=== PATIENT | female | born 2005 | race Caucasian/White ===

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

== ENCOUNTER → 2023-12-06 | Outpatient (CLI) | payer OTHER, SELFPAY ==
[2023-12-06 17:01] LABS: Absolute Lymphocyte Count 1.61 X10^3/uL (0.83-4.51); Basophil# 0.03 X10^3/uL; Basophil% 0.5 % (0-1); Eosinophils% 1.6 % (0-5); Hematocrit 40.3 % (37-47); Hemoglobin 13.5 g/dL (12.0-15.0); Lymphocyte # 1.61 X10^3/ul (0.83-4.51); Lymphocyte % 26.1 % (19-41); Mean Corp Hgb Conc 33.5 g/dL (32-36); Mean Corpuscular Hgb 28.7 pg (27.0-32.0); Mean Corpuscular Volume 85.7 fL (81-99); Mean Platelet Vol. 9.6 fl (6.2-12.0); Monocyte# 0.42 X10^3/uL; Monocyte% 6.8 % (0-10); NRBC Flagged by Analyzer 0 % (0-5); Neutrophil # 3.99 X10^3/uL (2.7-7.7); Neutrophil % 64.7 % (47-70); Platelet Count 258 K/mm3 (150-450); RBC Distribution Width CV 13.6 % (11.6-14.6); RBC Distribution Width SD 42.7 fl (35.1-43.9); White Blood Count 6.2 K/mm3 (4.4-11.0)
[2023-12-06 17:10] LABS: Anion Gap 9 (5-15); BUN 13 mg/dL (7-18); BUN/Creat Ratio 13.5 RATIO (10-20); Calcium,Total 9.2 mg/dL (8.5-10.1); Chloride 109 mmol/L (98-107); Creatinine, Serum 0.96 mg/dL (0.55-1.02); EST Glomerular Filtration Rate 78 mL/min (>60); Est Glom Filt Rate - Afr Amer 94 mL/min (>60); Glucose 104 mg/dL (74-106); Potassium 3.6 mmol/L (3.5-5.1); Sodium Level 142 mmol/L (136-145)
--- OUTSIDE RECORDS SUMMARY | 2023-12-06 22:23 | XMS RPT_ITS | CCD ---
Author Name Unknown Address [address] [place] [address] Organization [facility] Care Team Providers Care Deaf/Hard Of Hearing Specialist Name Role Phone RASHIDA COTA (BRAIDING MACHINE TENDER) Unavailable Unavailabl e Problems Problem Classification Problem Date Documented Da te Episodic/Chronic Other lower respiratory disease (1 source) Cough; Translations: [Cough] Onset: 11-14-2017 Episodic Results Test Name Value Interpretation Reference Range Facil ity Encounters Encounter Date Encounter Type Care Provider Facility Start: 11-14-2017 End: 11-14-2017 Ambulatory RASHIDA PRESCOTT) [facility] Summary Purpose Family History No Family History Records Found Advance Directives No Advanced Directives Records Found Additional Source Comments INFORMATION SOURCE (unrecogn ized section and content) FOR RECORDS PERTAINING TO PATIENTS WHO ARE OR HAVE BEEN ENROLLED IN A CHEMICAL DEPENDENCY/SUBSTANCEABUSE PROGRAM, SOME INFORMATION MAY BE OMITTED. This clinical summary was aggregated from multiple sources. Caution should be exercised in using it in the provision of clinical care. This summary normalizes information from multiple sources, and as a consequence, information in this document may materially change the coding, format and clinical context of patient data. In addition, data may be omitted in some cases. CLINICAL DECISIONS SHOULD BE BASED ON THE PRIMARY CLINICAL RECORDS. [email or web address] provides no warranty or guarantee of the accuracy or completeness of information in this document.
[2023-12-11 23:03] LABS: HPV Reflexed? YES, CHARGE PATIENT; HPV Rflx Negative
[2023-12-11 23:04] LABS: Chlamydia By Nucleic Acid AMP Negative; Gonococcus By Nucleic Acid AMP Negative
== END | disposition home or self-care (01) ==
PROVIDERS: PCP Family Medicine; Visit Provider Family Medicine
DX: Z01.411 Encounter for gynecological examination (general) (routine) with abnormal findings (principal); Z01.419 Encounter for gynecological examination (general) (routine) without abnormal findings; R55 Syncope and collapse
CPT/HCPCS: 36415; 80048; 85025; 87491; 87591; 87624; 88142

== ENCOUNTER → 2024-12-19 | Outpatient (CLI) | payer OTHER, SELFPAY ==
[2024-12-19 15:24] LABS: Absolute Lymphocyte Count 2.09 X10^3/uL (0.83-4.51); Absolute Neutrophil Count 2.6 X10^3/uL (2.0-7.7); Basophil# 0.04 X10^3/uL; Basophil% 0.8 % (0-1); Eosinophil# 0.18 X10^3/uL; Eosinophils% 3.5 % (0-5); Hematocrit 38.9 % (37-47); Hemoglobin 13.6 g/dL (12.0-15.0); Lymphocyte # 2.09 X10^3/ul (0.83-4.51); Lymphocyte % 40.1 % (19-41); Mean Corpuscular Hgb 29.1 pg (27.0-32.0); Mean Corpuscular Volume 83.3 fL (81-99); Mean Platelet Vol. 9.1 fl (6.2-12.0); Monocyte# 0.31 X10^3/uL; NRBC Flagged by Analyzer 0 % (0-5); Neutrophil # 2.57 X10^3/uL (2.7-7.7); Neutrophil % 49.2 % (47-70); Platelet Count 240 K/mm3 (150-450); RBC Distribution Width CV 12.1 % (11.6-14.6); RBC Distribution Width SD 36.9 fl (35.1-43.9); Red Blood Count 4.67 M/mm3 (4.2-5.4); White Blood Count 5.2 K/mm3 (4.4-11.0)
[2024-12-19 17:06] LABS: ALB/GLOB Ratio 1.8 RATIO (0.9-2.4); AST(SGOT) 15 U/L (<=31); Alanine Aminotransfer ALT/SGPT 18 U/L (<=34); Alkaline Phosphatase 36 U/L (35-104); Anion Gap 14 (5-15); BUN 8 mg/dL (4-19); BUN/Creat Ratio 10.6 RATIO (10-20); Calcium,Total 9.1 mg/dL (7.6-11.0); Chloride 105 mmol/L (98-108); Creatinine, Serum 0.76 mg/dL (0.70-1.20); EST Glomerular Filtration Rate 115 (>60); Globulin 2.2 g/dL (2.2-4.2); Glucose 80 mg/dL (70-99); Potassium 3.6 mmol/L (3.3-5.1); Protein, Total 6.2 g/dL (5.9-8.4); Sodium Level 139 mmol/L (133-145); Thyroid Stim Hormone (TSH) 0.747 uIU/mL (0.300-4.200); Total Bilirubin 0.76 mg/dL (0.00-1.30)
== END | disposition home or self-care (01) ==
LOC: BIMLAB 14:20
PROVIDERS: PCP Family Medicine; Referring Provider Family Medicine; Visit Provider Family Medicine
DX: R63.4 Abnormal weight loss (principal)
CPT/HCPCS: 36415; 80053; 84439; 84443; 85025

== ENCOUNTER → 2025-04-14 | Outpatient (CLI) | payer OTHER, SELFPAY ==
--- NOTE | 2025-04-14 09:19 | RAD_ITS ---
PROCEDURE: CERV SPINE 4 OR 5 VIEWS 04/14/2025 REASON FOR EXAM: BACK PAIN TECHNIQUE: CERV SPINE 4 OR 5 VIEWS COMPARISON: None RAD/Cerv Spine 4 or 5 Views IMPRESSION: No acute cervical fracture or subluxations. No significant degenerative change s. No acute soft tissue abnormalities. No radiographic foreign body. Reading Location: [id number]
--- NOTE | 2025-04-14 09:19 | RAD_ITS ---
EXAM: XR Lumbosacral Spine, 4 or 5 Views CLINICAL INDICATION: BACK PAIN TECHNIQUE: Frontal, lateral and bilateral oblique views of the lumbar spine. COMPARISON: No relevant prior studies available. FINDINGS: VERTEBRAE: Unremarkable. No acute fracture. Normal alignment. SACRUM/COCCYX: Unremarkable as visualized. No acute fracture. DISC SPACES: No acute findings. No significant narrowing. SOFT TISSUES: Unremarkable. RAD/L/S Spine Comp/w Bending Views IMPRESSION: Normal lumbar spine x-rays. Reading Location: [facility]
--- NOTE | 2025-04-14 09:19 | RAD_ITS ---
PROCEDURE: THORACIC SPINE 3 VIEWS 04/14/2025 REASON FOR EXAM: BACK PAIN TECHNIQUE: THORACIC SPINE 3 VIEWS COMPARISON: None RAD/Thoracic Spine 3 Views IMPRESSION: No acute thoracic fracture or subluxations. Alignment is grossly within normal limits. No definite listhesis. Visualized portions of the lungs are clear. Reading Location: [id number]
--- OUTSIDE RECORDS SUMMARY | 2025-04-14 19:00 | XMS RPT_ITS | CCD ---
Author Organization [facility] Care Team Providers Care Talent Consultant Name Role Phone Dr. Esau Ordonez Primary Care Provider [phone] Dr. Esau Ordonez Attending Provider [phone] Dr. Esau Ordonez Referring Provider [phone] Esau Ordonez DO Primary Care Provider ESAU ORDONEZ Primary Care Unavailable Dr. Esau Ordonez DO Primary Care Provider Dr. Esau Ordoenz DO Attending Provider [phone] Dr. Esau Ordonez DO Referring Provider [phone] Esau Ordonez Attending Unavailable Esau Ordonez Referring Unavailable Esau Ordonez Primary Care Unavailable Esau Ordonez Referring Unavailable Esau Ordonez Primary Care Unavailable Esau Ordoenz Attending Unavailable Dr. Esau Ordonez DO Primary Care Provider Dr. Esau Ordonez DO Attending Provider [phone] Dr. Esau Ordonez DO Referring Provider [phone] Jody Farias Attending Provider [phone] Medications Current Medications Medication Drug Class(es) Dates Sig (Normalized) Sig (Original) COMPOUNDED PRESCRIPTION (1 source) take 1 tablet by mouth once daily COMPOUNDED PRESCRIPTION Take 1 tablet by mouth once daily. Biotin 500mg daily 0 Active Drospirenone-Ethiny l Estradiol (6 sources) Progestin, Estrogen Start: 12-18-2024 take 3 tablets by mouth once daily Drospirenone-Ethiny l Estradiol (Jackie (28)) 3-0.03 mg tablet Active 1 {tbl} PO DAILY 21 09December 18, 2024 8:15am Start: 12-18-2024 take 3 tablets by mo uth once daily Drospirenone-Ethinyl Estradiol (Jackie (28)) 3-0.03 mg tablet Active 1 {tbl} PO DAILY December 18, 2024 8:15am Start: 12-10-2024 End: 12-18-2024 take 3 tablets by mouth once daily Drospirenone-Ethinyl Estradiol (Jackie (28)) 3-0.03 mg tablet Discontinued 1 {tbl} PO DAILY 21 09December 10, 2024 4:12pm December 18, 2024 8:15am Start: 12-10-2024 End: 12-18-2024 take 3 tablets by mouth once daily Drospirenone-Ethinyl Estradiol (Jackie (28)) 3-0.03 mg tablet Discontinued 1 {tbl} PO DAILY December 10, 2024 4:12pm December 18, 2024 8:15am Start: 12-13-2023 End: 12-10-2024 take 3 tablets by mouth once daily Drospirenone-Ethinyl Estradiol (Jackie (28)) 3-0.03 mg tablet Discontinued 1 {tbl} PO DAILY 21 09December 13, 2023 12:00am December 10, 2024 4:12pm Start: 12-13-2023 End: 12-10-2024 take 3 tablets by mouth once daily Drospirenone-Ethinyl Estradiol (Jackie (28)) 3-0.03 mg tablet Discontinued 1 {tbl} PO DAILY December 13, 2023 12:00am December 10, 2024 4:12pm ibuprofen 300 mg oral tablet (3 sources) Nonsteroidal Anti-inflammatory Drug Start: 12-06-2023 take 2 tablets by mouth every six hours Ibuprofen 300 mg tablet Active 600 mg PO EVERY 6 HOURS December 06, 2023 12:00am Start: 12-06-2023 take 600 mg by mouth every six hours Ibuprofen Active 600 MG PO EVERY 6 HOURS December 06, 2023 12:00am MULTIVIT WITH CALCIUM,IRON,MIN (WOMEN'S MULTIPLE VITAMINS ORAL) (1 source) take 1 capsule by mouth once daily MULTIVIT WITH CALCIUM,IRON,MIN (WOMEN'S MULTIPLE VITAMINS ORAL) Take 1 capsule by mouth once daily. 0 Active predniSONE 20 mg oral tablet (2 sources) Start: 02-16-2024 End: 02-21-2024 take 2 tablets by mouth once daily predniSONE (DELTASONE) 20 mg tablet Indications: Sore throat , URI, acute Take 2 tablets by mouth once daily for 5 days. 10 tablet 0 02/16/2024 02/16/2024 Discontinued Problems Problem Classification Problem Date Documented Date Episodic/Chronic Administrative/social admission (3 sources) Special examination status; Translations: [Encounter for examination for participation in sport] 05-06-2019 Episodic Other nutritional; endocrine; and metabolic disorders (3 sources) Unexplained weight loss ; Translations: [Abnormal weight loss] 12-10-2024 Episodic Other nutritional; endocrine; and metabolic disorders (1 source) Abnormal weight loss; Translations: [Abnormal weight loss] Onset: 12-24-2024 Episodic Other upper respiratory infections (2 sources) Sore throat symptom; Translations: [Acute pharyngitis, unspecified] 02-16-2024 Episodic Spondylosis; intervertebral disc disorders; other back problems (1 source) Backache; Translations: [Dorsalgia, unspecified] 04-14-2025 Episodic Syncope (4 sources) Syncope and collapse; Translations: [Syncope and collapse] 12-06-2023 Episodic Results Test Name Value Interpretation Reference Range Facility Absolute lymphocyte countOrd ered By: Esau Ordonez on 12-19-2024 Lymphocytes Auto (Unsp spec) [#/Vol] 2.09 10*3/uL 0.83-4.51 [facility] Absolute neutrophil countOrd ered By: Esau Ordonez on 12-19-2024 Neutrophils (Bld) [#/Vol] 2.6 10*3/uL 2.0-7.7 [facility] Anion gap in Serum or Plasma Ordered By: Esau Ordonez on 12-19-2024 Anion gap [Moles/Vol] 14 mmol/L 5-15 [facility] Automated lymphocyte count a s percentage of total leukocytesOrdered By: Esau Ordonez on 12-19-2024 Lymphocytes/100 WBC Auto (Unsp spec) 40.1 % [facility] BUN/creatinine ratioOrdered By: Esau Ordonez on 12-19-2024 Urea nitrogen/Creatinine [Mass ratio] 10.6 mg/mg 10- [facility] Basophil percentageOrdered B y: Esau Ordonez on 12-19-2024 Basophils/100 WBC (Bld) 0.8 % 0-1 [facility] Bilirubin, totalOrdered By: Esau Ordonez on 12-19-2024 Bilirubin [Mass/Vol] 0.76 mg/dL 0.00-1.30 [facility] CBC W/Diff, Automatedon 11-24 Absolute Lymph 2.09 X10 3/uL Normal 0.83-4.51 [facility] Comment on above: Performed By: #### L 100.0100, L506.0400, L500.4050, L501.9520 #### [facility] [address] [place], [address] Absolute Neut 2.6 X10 3/uL Normal 2.0-7.7 [facility] Comment on above: Performed By: #### L 100.0100, L506.0400, L500.4050, [id number] #### [facility] [address] [place], [address] Basophils/100 WBC (Bld) 0.8 % Normal 0-1 [facility] Comment on above: Performed By: #### L 100.0100, L506.0400, L500.4050, [id number] #### [facility] [address] [place], [address] Eosinophils/100 WBC (Bld) 3.5 % Normal 0-5 [facility] Comment on above: Performed By: #### L 100.0100, L506.0400, L500.4050, L501.9520 #### [facility] [address] [place], [address] Erythrocyte distribution width (RBC) [Ratio] 12.1 % Normal 11.6-14.6 [facility] Comment on above: Performed By: #### L 100.0100, L506.0400, L500.4050, L501.9520 #### [facility] [address] [place], [address] Hematocrit (Bld) [Volume fraction] 38.9 % Normal 37-47 [facility] Comment on above: Performed By: #### L 100.0100, L506.0400, L500.4050, [id number] #### [facility] [address] [place], [address] Hemoglobin (Bld) [Mass/Vol] 13.6 g/dL Normal 12.0-15.0 [facility] Comment on above: Performed By: #### L 100.0100, L506.0400, L500.4050, L501.9520 #### [facility] [address], [address] IG% 0.400 Normal 0.0-0.9 [facility] Comment on above: Result Comment: IG% - Immature Granulocytes (promyelocytes, myelocytes and metamyelocytes) > 1% indicates that a LEFT SHIFT is Present. Performed By: #### L 100.0100, L506.0400, L500.4050, L501.9520 #### [facility] [address] [place], [address] Lymphocytes/100 WBC (Bld) 40.1 % Normal 19-41 [facility] Comment on above: Performed By: #### L 100.0100, L506.0400, L500.4050, L501.9520 #### [facility] [address] [place], [address] MCH (RBC) [Entitic mass] 29.1 pg Normal 27.0-32.0 [facility] Comment on above: Performed By: #### L 100.0100, L506.0400, L500.4050, L501.9520 #### [facility] [address] [place], [address] MCHC (RBC) [Mass/Vol] 35.0 g/dL Normal 32-36 [facility] Comment on above: Performed By: #### L 100.0100, L506.0400, L500.4050, L501.9520 #### [facility] [address] [place], [address] MCV (RBC) [Entitic vol] 83.3 fL Normal 81-99 [facility] Comment on above: Performed By: #### L 100.0100, L506.0400, L500.4050, L501.9520 #### [facility] [address] [place], [address] Monocytes/100 WBC (Bld) 6.0 % Normal 0-[address] [facility] Comment on above: Performed By: #### L 100.0100, L506.0400, L500.4050, L501.9520 #### [facility] [address] [place], [address] Neutrophils/100 WBC (Bld) 49.2 % Normal 47-70 [facility] Comment on above: Performed By: #### L 100.0100, L506.0400, L500.4050, L501.9520 #### [facility] [address] [place], [address] Nucleated RBC (Bld) [#/Vol] 0 10*3/uL Normal 0-5 [facility] Comment on above: Performed By: #### L 100.0100, L506.0400, L500.4050, L501.9520 #### [facility] [address] [place], [address] Platelet mean volume (Bld) [Entitic vol] 9.1 fL Normal 6.2-12.0 [facility] Comment on above: Performed By: #### L 100.0100, L506.0400, L500.4050, L501.9520 #### [facility] [address] [place], [address] Platelets (Bld) [#/Vol] 240 10*3/uL Normal 150-450 [facility] Comment on above: Performed By: #### L 100.0100, L506.0400, L500.4050, L501.9520 #### [facility] [address] [place], [address] RBC (Bld) [#/Vol] 4.67 10*6/uL Normal 4.2-5.4 [facility] Comment on above: Performed By: #### L 100.0100, L506.0400, L500.4050, L501.9520 #### [facility] [address] [place], [address] RDW SD 36.9 fl Normal 35.1-43.9 [facility] Comment on above: Performed By: #### L 100.0100, L506.0400, L500.4050, L501.9520 #### [facility] [address] [place], [address] WBC (Bld) [#/Vol] 5.2 10*3/uL Normal 4.4-11.0 [facility] Comment on above: Performed By: #### L 100.0100, L506.0400, L500.4050, L501.9520 #### [facility] [address] [place], [address] Carbon dioxide, total [Moles /volume] in Central venous bloodOrdered By: Esau Ordonez on 12-19-2024 CO2 [Moles/Vol] 20.0 mmol/L Low 21.0-32.0 [facility] Chloride assayOrdered By: Do viktoria Ordonez on 12-19-2024 Chloride [Moles/Vol] 105 mmol/L 98-108 [facility] Comprehensive Metabolic Prof ilon 12-19-2024 Albumin [Mass/Vol] 4.0 g/dL Normal 3.5-5.0 [facility] Comment on above: Performed By: #### L 100.0100, L506.0400, L500.4050, L501.9520 #### [facility] [address] [place], [address] Albumin/Globulin [Mass ratio] 1.8 {ratio} Normal 0.9-2.4 [facility] Comment on above: Performed By: #### L 100.0100, L506.0400, L500.4050, L501.9520 #### [facility] [address] [place], [address] ALK PHOS 36 U/L Normal 35-104 [facility] Comment on above: Performed By: #### L 100.0100, L506.0400, L500.4050, L501.9520 #### [facility] [address] [place], [address] ALT [Catalytic activity/Vol] 18 U/L Normal <=34 [facility] Comment on above: Performed By: #### L 100.0100, L506.0400, L500.4050, L501.9520 #### [facility] [address] [place], [address] AST [Catalytic activity/Vol] 15 U/L Normal <=31 [facility] Comment on above: Performed By: #### L 100.0100, L506.0400, L500.4050, L501.9520 #### [facility] [address] [place], [address] Bilirubin [Mass/Vol] 0.76 mg/dL Normal 0.00-1.30 [facility] Comment on above: Performed By: #### L 100.0100, L506.0400, L500.4050, L501.9520 #### [facility] [address] [place], [address] BUN/CRE 10.6 RATIO Normal 10-20 [facility] Comment on above: Performed By: #### L 100.0100, L506.0400, L500.4050, L501.9520 #### [facility] [address] [place], [address] Calcium [Mass/Vol] 9.1 mg/dL Normal 7.6-11.0 [facility] Comment on above: Performed By: #### L 100.0100, L506.0400, L500.4050, L501.9520 #### [facility] [address] [place], [address] Chloride [Moles/Vol] 105 mmol/L Normal 98-108 [facility] Comment on above: Performed By: #### L 100.0100, L506.0400, L500.4050, L501.9520 #### [facility] [address] [place], [address] CO2 [Moles/Vol] 20.0 mmol/L Low 21.0-32.0 [facility] Comment on above: Performed By: #### L 100.0100, L506.0400, L500.4050, L501.9520 #### [facility] [address] [place], [address] Creatinine [Mass/Vol] 0.76 mg/dL Normal 0.70-1.20 [facility] Comment on above: Performed By: #### L 100.0100, L506.0400, L500.4050, L501.9520 #### [facility] [address] [place], [address] GAP 14 Normal 5-15 [facility] Comment on above: Performed By: #### L 100.0100, L506.0400, L500.4050, L501.9520 #### [facility] [address] [place], [address] GFR/1.73 sq M.predicted among non-blacks MDRD (S/P/Bld) [Vol rate/Area] 115 mL/min/{1.73_m2} Normal >60 [facility] Comment on above: Result Comment: mL/m in/1.73m2 CKD-EPI Creatinine Equation (2020) Performed By: #### L 100.0100, L506.0400, L500.4050, L501.9520 #### [facility] [address] [place], [address] Globulin (S) [Mass/Vol] 2.2 g/dL Normal 2.2-4.[address] [facility] Comment on above: Performed By: #### L 100.0100, L506.0400, L500.4050, L501.9520 #### [facility] [address] [place], [address] Glucose [Mass/Vol] 80 mg/dL Normal 70-99 [facility] Comment on above: Performed By: #### L 100.0100, L506.0400, L500.4050, L501.9520 #### [facility] [address] [place], [address] Potassium [Moles/Vol] 3.6 mmol/L Normal 3.3-5.1 [facility] Comment on above: Performed By: #### L 100.0100, L506.0400, L500.4050, L501.9520 #### [facility] [address] [place], [address] Sodium [Moles/Vol] 139 mmol/L Normal 133-145 [facility] Comment on above: Performed By: #### L 100.0100, L506.0400, L500.4050, L501.9520 #### [facility] [address] [place], [address] T PROT 6.2 g/dL Normal 5.9-8.4 [facility] Comment on above: Performed By: #### L 100.0100, L506.0400, L500.4050, L501.9520 #### [facility] [address] [place], [address] Urea nitrogen [Mass/Vol] 8 mg/dL Normal 4-19 [facility] Comment on above: Performed By: #### L 100.0100, L506.0400, L500.4050, L501.9520 #### [facility] [address] [place], [address] Eosinophil percentageOrdered By: Esau Ordonez on 12-19-2024 Eosinophils/100 WBC (Bld) 3.5 % 0-5 [facility] Erythrocyte distribution wid th ratioOrdered By: Esau Ordonez on 12-19-2024 Erythrocyte distribution width (RBC) [Ratio] 12.1 % 11.6-14.6 [facility] Erythrocyte distribution wid th standard deviationOrdered By: Esau Ordonez on 12-19-2024 Erythrocyte distribution width (RBC) [Entitic vol] 36.9 fL 35.1-43.9 [facility] Erythrocyte distribution width (RBC) [Ratio] 36.9 fl 35.1-43.9 [facility] GFR/1.73 sq M.predicted luis g non-blacks MDRD (S/P/Bld) [Vol rate/Area]Ordered By: Esau Ordonez on 12-19-2024 Estimated GFR (MDRD) Non-Af Amer 115 >60 [facility] Comment on above: mL/min/1.73m2 CKD-EP I Creatinine Equation (2020) Glomerular filtration rate ( GFR) estimation/1.73 sq m using serum, plasma, or whole bOrdered By: Esau Ordonez on 12-19-2024 GFR/1.73 sq M.predicted among non-blacks MDRD (S/P/Bld) [Vol rate/Area] 115 mL/min/{1.73_m2} >60 [facility] Comment on above: mL/min/1.73m2 CKD-EP I Creatinine Equation (2020) Hematocrit Auto (Bld) [Volum e fraction]Ordered By: Esau Ordonez on 12-19-2024 Hematocrit (Bld) [Volume fraction] 38.9 % 37-47 [facility] Hemoglobin measurementOrdere d By: Esau Ordonez on 12-19-2024 Hemoglobin (Bld) [Mass/Vol] 13.6 g/dL 12.0-15.0 [facility] Immature granulocytes/100 WB C Auto (Bld)Ordered By: Esau Ordonez on 12-19-2024 Immature granulocytes/100 WBC (Bld) 0.400 % 0.0-0.9 [facility] Comment on above: IG% - Immature Granu locytes (promyelocytes, myelocytes and metamyelocytes) > 1% indicates that a LEFT SHIFT is Present. Laboratory - Chemistry and C hemistry - challengeOrdered By: Esau Ordonez on 12-19-2024 AST [Catalytic activity/Vol] 15 U/L <32 [facility] Lymphocytes Auto (Unsp spec) [#/Vol]Ordered By: Esau Ordonez on 12-19-2024 Lymphocytes (Bld) [#/Vol] 2.09 10*3/uL 0.83-4.51 [facility] Lymphocytes/100 WBC Auto (Un sp spec)Ordered By: Esau Ordonez on 12-19-2024 Lymphocytes/100 WBC (Bld) 40.1 % 19-41 [facility] MCV (mean corpuscular volume ) determinationOrdered By: Esau Ordonez on 12-19-2024 MCV (RBC) [Entitic vol] 83.3 fL 81-99 [facility] Mean corpuscular hemoglobin (MCH) determinationOrdered By: Esau Ordonez on 12-19-2024 MCH (RBC) [Entitic mass] 29.1 pg 27.0-32.0 [facility] Mean corpuscular hemoglobin concentration (MCHC) determinationOrdered By: Esau Ordonez on 12-19-2024 MCHC (RBC) [Mass/Vol] 35.0 g/dL 32-36 [facility] Mean platelet volume determi nationOrdered By: Esau Ordonez on 12-19-2024 Platelet mean volume (Bld) [Entitic vol] 9.1 fL 6.2-12.0 [facility] Monocyte percentageOrdered B y: Esau Ordonez on 12-19-2024 Monocytes/100 WBC (Bld) 6.0 % 0-10 [facility] Neutrophil percentageOrdered By: Esau Ordonez on 12-19-2024 Neutrophils/100 WBC (Bld) 49.2 % 47-70 [facility] Nucleated red blood cell per centageOrdered By: Esau Ordonez on 12-19-2024 Nucleated RBC/100 WBC (Bld) [Ratio] 0 % 0-5 [facility] Platelet countOrdered By: Do viktoria Ordonez on 12-19-2024 Platelets (Bld) [#/Vol] 240 10*3/uL 150-450 [facility] Potassium (Unsp spec) [Mass/ Vol]Ordered By: Esau Ordonez on 12-19-2024 Potassium [Moles/Vol] 3.6 mmol/L 3.3-5.1 [facility] Potassium measurement (mass/ volume)Ordered By: Esau Ordonez on 12-19-2024 Potassium (Unsp spec) [Mass/Vol] 3.6 mmol/L 3.3-5.1 [facility] RBC Auto (Bld) [#/Vol]Ordere d By: Esau Ordonez on 12-19-2024 RBC (Bld) [#/Vol] 4.67 10*6/uL 4.2-5.4 [facility] Serum creatinine measurement (mass/volume)Ordered By: Esau Ordonez on 12-19-2024 Creatinine [Mass/Vol] 0.76 mg/dL 0.70-1.20 [facility] Serum globulin measurementOr dered By: Esau Ordonez on 12-19-2024 Globulin (S) [Mass/Vol] 2.2 g/dL 2.2-4.2 [facility] Serum glucose measurement (m ass/volume)Ordered By: Esau Ordonez on 12-19-2024 Glucose [Mass/Vol] 80 mg/dL 70-99 [facility] Serum or plasma alanine lee otransferase (ALT) measurementOrdered By: Esau Ordonez on 12-19-2024 ALT [Catalytic activity/Vol] 18 U/L <35 [facility] Serum or plasma albumin casey urement (mass/volume)Ordered By: Esau Ordonez on 12-19-2024 Albumin [Mass/Vol] 4.0 g/dL 3.5-5.0 [facility] Serum or plasma albumin/glob ulin mass ratioOrdered By: Esau Ordonez on 12-19-2024 Albumin/Globulin [Mass ratio] 1.8 {ratio} 0.9-2.4 [facility] Serum or plasma alkaline pamela sphatase measurementOrdered By: Esau Ordonez on 12-19-2024 ALP [Catalytic activity/Vol] 36 U/L 35-104 [facility] Serum or plasma calcium casey urement (mass/volume)Ordered By: Esau Ordonez on 12-19-2024 Calcium [Mass/Vol] 9.1 mg/dL 7.6-11.0 [facility] Serum or plasma urea nitroge n measurement (mass/volume)Ordered By: Esau Ordonez on 12-19-2024 Urea nitrogen [Mass/Vol] 8 mg/dL 4-19 [facility] Sodium levelOrdered By: Dedrick Ordonez on 12-19-2024 Sodium [Moles/Vol] 139 mmol/L 133-145 [facility] T4 Free Directon 12-19-2024 T4 FREE DIRECT 1.20 ng/dL Normal 0.76-1.46 [facility] Comment on above: Performed By: #### L 100.0100, L506.0400, L500.4050, L501.9520 #### [facility] [place], [address] T4 freeOrdered By: Esau cristina on 12-19-2024 Free T4 [Mass/Vol] 1.20 ng/dL 0.76-1.46 [facility] TSH DL <= 0.005 mIU/L QnOrde red By: Esau Ordonez on 12-19-2024 Thyroid Stimulating Hormone (TSH) 0.747 uIU/mL 0.300-4.200 [facility] TSH Qn 0.747 uIU/mL 0.300-4.200 [facility] Thyroid Stim Hormone (TSH)on 12-19-2024 TSH 0.747 uIU/mL Normal 0.300-4.200 [facility] Comment on above: Performed By: #### L 100.0100, L506.0400, L500.4050, L501.9520 #### [facility] [address] [place], [address] Total proteinOrdered By: Rosaline Ordonez on 12-19-2024 Protein [Mass/Vol] 6.2 g/dL 5.9-8.4 [facility] White blood cell (WBC) count Ordered By: Esau Ordonez on 12-19-2024 WBC (Bld) [#/Vol] 5.2 10*3/uL 4.4-11.0 [facility] Internal Medicine Office Vis iton 12-10-2024 Internal Medicine Office Visit [facility] [place] [address] [place] [address] OFFICE VISIT Date of Service: 12/10/24 MR#: [id number] Acct: [id number] Name: FIDE GALARZA I Rep #: [id number] : 2005 Provider: Dr. Esau yadav DO Age/Sex: 19/F Location: [facility] Status: Signed Intake Vital Signs 12/06/23 15:06 12/10/24 15:59 Height 5 ft 5 in 5 ft 5 in Weight: 125 lb BMI 20.7 BP 122/88 H Blood Pressure Location Lt brachial Position Sitting Respiration 18 Pulse 82 Pulse Source Monitor Temp 98.6 F Temp Source Temporal Pulse Oximetry (%) 99 Oxygen Delivery Method room air Intake Visit Reasons: 1 Y FU Chief Complaint: 1 Y FU Is patient in pain?: No Allergies No Known Allergies Allergy (Unverified 12/10/24 15:58) Medications ???Medication ???Instructions ???Recorded ???Confirmed ???Type ibuprofen 300 mg tablet 600 mg PO Q6H 12/06/23 12/10/24 Hi story drospirenone 3 mg-ethinyl 1 tab PO DAILY #28 tabs 12/10/24 0 12/10/24 Rx estradiol 0.03 mg tablet (Jackie (28)) PFSH Family History Father Heart disease Social History adopted: No household members: family current occupational status: employed current occupation: senior sql server dba at [employer] pets and animals: Yes pets and animals: cat(s) and dog(s) sexually active: No Electronic Cigarette Use: with nicotine quit status: considering quitting alcohol intake: current alcohol intake frequency: a few times a month substance use type: former substance user and marijuana diet: gluten free caffeine: Yes (1) Type: other frequency: 5-6 times per week do you feel safe at home: Yes HPI HPI Chief Complaint: 1 Y FU Details: FIDE GALARZA, is a 19 F who presents to the office today for a routine physical exam. Her her major concern is that she is lost a lot of weight unintentionally. She has lost almost 30 pounds since last year and had lost more weight than that the year before. She has not had any significant change in appetite and she has not had any significant change in bowel movements. She said no change in her urinary pattern. She does not feel poorly she is just lost a considerable amount of weight. ROS Const Constitutional: No body ache, chills, excessive sweating, fatigue, fever(s), frequent falls, headache(s), snoring, weight change, sleep problems, abnormal sleep pattern or change in appetite Eyes Eyes: No blurry vision, change in vision, eye pain or Light sensitivity ENT ENT: No abnormal hearing, ear or mastoid pain, tinnitus, nasal congestion, headache(s), neck pain or sore throat Resp Respiratory: No cough, shortness of breath, snoring or wheezing Cardio Cardiology: No chest pain at rest, chest pain with exertion, excessive sweating, shortness of breath, dyspnea on exertion, lightheadedness, orthopnea or palpitations Gastro GI: No abdominal pain, change in bowel habits, constipation, cramping, diarrhea, nausea/dyspepsia or vomiting Genitourinary-Female : No burning urination, painful urination, urinary incontinence, urinary frequency, abnormal vaginal bleeding or pelvic pain Musc Musculoskeletal: No abnormal gait, joint pain, back pain, limited range of motion, neck pain, numbness or tingling Skin Skin: No dry skin, redness, lesions, itchy eyes, rash or wounds Neuro Neurology: No abnormal gait, abnormal hearing, frequent falls, headache(s), memory loss, numbness or tingling Psych Psychiatric: No abnormal sleep pattern, No anxiety, No change in appetite, No irritability, No memory loss and No Thoughts of harming yourself/Others Endo Endocrine: No cold intolerance, excessive sweating, fatigue, flushing, heat intolerance, increased thirst/drinking, increased hunger or weight change Aller/Imm Allergy/Immunologic: No itchy eyes, seasonal allergy symptoms, hives or wheezing Tomer/Lymp Hematologic/Lymphati c: No easy bleeding, easy bruising, enlarged lymph nodes or other Exam Const General: cooperative, healthy appearing and well developed Nutritional Appearance: average body habitus Orientation: oriented x3 HENMT Head: normal to inspection Ears: hearing grossly normal bilaterally Nose: external nose normal Face and sinus: normal facial exam Mouth: oral mucosae normal Teeth and gingiva: dentition normal Throat: posterior oropharynx normal Eyes General: appearance normal, both eyes and all related structures Neck Neck: normal visual inspection Neck mass: No Thyroid: thyroid normal Chest Chest palpation inspection: normal inspection of the chest Breast inspection: normal inspection of the breasts Breast palpation: normal palpation of the breasts and other (bilateral pierced nipples.) Resp Effort Inspec (more content not included)... [facility] FIDE GALARZA ([id number]) 1 F Date Time Provider Department 02/16/24 7:30 AM SIDNEY SANCHEZ [facility] [place] During your visit today, we recorded the following information about you: Temperature Pulse Respiration Blood pressure 98 degrees 87/minute 16/minute 120/64 Weight 67.7 kg Sidney Sanchez APRN.CNP 02/16/2024 8:07 AM Signed Subjective HPI HPI Fide Galarza is a 18 year old female who presents today for CC of cough, st. This started 5 days ago. Has tried otc medication for relief. Symptoms are worsened by nothing. Risk factors sick exposures at work. Denies possibility of being . nonsmoker. .Patient presents with: Sore Throat: X5 days No past medical history on file. No past surgical history on file. ALLERGIES Patient has no known allergies. MEDICATIONS MULTIVIT WITH CALCIUM,IRON,MIN (WOMEN'S MULTIPLE VITAMINS ORAL) Take 1 capsule by mouth once daily. COMPOUNDED PRESCRIPTION Take 1 tablet by mouth once daily. Biotin 500mg daily predniSONE (DELTASONE) 20 mg tablet Take 2 tablets by mouth once daily for 5 days. No family history on file. Social History Tobacco Use Smoking status: Never Passive exposure: Yes Smokeless tobacco: Never Review of Systems Constitutional: Negative for fever. HENT: Positive for congestion and sore throat. Negative for ear pain and nosebleeds. Respiratory: Positive for cough. Negative for shortness of breath and wheezing. Musculoskeletal: Negative for neck pain. Objective Blood pressure 120/64, pulse 87, temperature 36.7 ?C (98 ?F), resp. rate 16, weight 67.7 kg (149 lb 4 oz), SpO2 99%. Physical Exam Constitutional: General: She is not in acute distress. Appearance: She is not toxic-appearing or diaphoretic. HENT: Head: Normocephalic and atraumatic. Right Ear: Hearing, tympanic membrane, ear canal and external ear normal. Left Ear: Hearing, tympanic membrane, ear canal and external ear normal. Nose: Nose normal. Mouth/Throat: Lips: [place]. Mouth: Mucous membranes are moist. Pharynx: Uvula midline. Posterior oropharyngeal erythema present. No pharyngeal swelling, oropharyngeal exudate or uvula swelling. Eyes: General: Lids are normal. No scleral icterus. Right eye: No discharge. Left eye: No discharge. Conjunctiva/sclera: Conjunctivae normal. Pupils: Pupils are equal, round, and reactive to light. Neck: Trachea: Trachea normal. Cardiovascular: Rate and Rhythm: Normal rate and regular rhythm. Heart sounds: Normal heart sounds. Pulmonary: Effort: Pulmonary effort is normal. Breath sounds: Normal breath sounds. Musculoskeletal: Cervical back: Normal range of motion and neck supple. Lymphadenopathy: Cervical: No cervical adenopathy. Right cervical: No superficial cervical adenopathy. Left cervical: No superficial cervical adenopathy. Skin: Findings: No rash. Neurological: Mental Status: She is alert and oriented to person, place, and time. ASSESSMENT/PLAN: 1. URI, acute - ICD9: 465.9, ICD10: J06.9 (primary diagnosis) - Discussed viral etiology and rationale for treatment. - Symptomatic treatment with prn analgesia - Supportive care with fluids and rest - Follow up in 3-5 days if symptoms persist or sooner if worsening of symptoms - PREDNISONE 20 MG TABLET 2. Sore throat - ICD9: 462, ICD10: J02.9 Negative, viral - STREP A MOLECULAR (POC) - PREDNISONE 20 MG TABLET MISSAEL Whatley Jonathan, APRN.CNP 02/16/2024 9:00 AM Signed Addended by: SIDNEY SANCHEZ on: 02/16/2024 09:00 AM Modules accepted: Orders Allergies As of Date: 02/16/2024 (No Known Allergies) Date Reviewed: 02/16/2024 Reviewed by: Amy Lopez - Fully Assessed Reason for Visit: Sore Throat [200] Cmt: X5 days Primary Visit Diagnosis:URI, acute [J06.9] Other Visit Diagnosis:Sore throat [J02.9] Order(s):STREP A MOLECULAR (POC) [1086924] Order #: [id number]. #:[id number] predniSONE (DELTASONE) 20 mg tabletTake 2 tablets by mouth once daily for 5 days.Disp: 10 tabletRfl: 0 Prescriptions as of 02/16/2024 - predniSONE (DELTASONE) 20 mg tablet Take 2 tablets by mouth once daily for 5 days. - MULTIVIT WITH CALCIUM,IRON,MIN (WOMEN'S MULTIPLE VITAMINS ORAL) Take 1 capsule by mouth once daily. - COMPOUNDED PRESCRIPTION Take 1 tablet by mouth once daily. Biotin 500mg daily Problem List As Of Date: 02/16/2024 (None) Prescriptions ordered this encounter Disp Refills Start End PREDNISONE 20 MG TABLET 10 t* 0 02/16/2024 02/16/2024 Route: ORAL Sig: Take 2 tablets by mouth once daily for 5 days. PREDNISONE 20 MG TABLET 10 t* 0 02/16/2024 02/21/2024 Route: ORAL Sig: Take 2 tablets by mouth once daily for 5 days. Medications Discontinued During This Encounter Prescriptions - predniSONE (DELTASONE) 20 mg tablet (Discontinued) Take 2 tablets by mouth once demi (more content not included)... Normal [facility] STREP A MOLECULAR (POC)on Procedural Control Valid [facility] Strep A (POCT) Negative Negative [facility] Absolute lymphocyte countOrd ered By: Esau Ordonez on 12-06-2023 Lymphocytes Auto (Unsp spec) [#/Vol] 1.61 10*3/uL 0.83-4.51 [facility] Automated lymphocyte count a s percentage of total leukocytesOrdered By: Esau Ordonez on 12-06-2023 Lymphocytes/100 WBC Auto (Unsp spec) 26.1 % 19-41 [facility] Basophil percentageOrdered B y: Esau Ordonez on 12-06-2023 Basophils/100 WBC (Bld) 0.5 % 0-1 [facility] Chloride [Moles/Vol] 109 mmol/L 98-107 [facility] Eosinophils/100 WBC (Bld) 1.6 % 0-5 [facility] Glucose [Mass/Vol] 104 mg/dL 74-106 [facility] Comment on above: Fasting Glucose resu lt from 100 to 125 mg/dL suggests IMPAIRED HOMEOSTASIS per A.D.A. criteria. Hemoglobin (Bld) [Mass/Vol] 13.5 g/dL 12.0-15.0 [facility] Monocytes/100 WBC (Bld) 6.8 % 0-10 [facility] Neutrophils (Bld) [#/Vol] 4.0 10*3/uL 2.0-7.7 [facility] Neutrophils/100 WBC (Bld) 64.7 % 47-70 [facility] Potassium [Moles/Vol] 3.6 mmol/L 3.5-5.1 [facility] Sodium [Moles/Vol] 142 mmol/L 136-145 [facility] WBC (Bld) [#/Vol] 6.2 10*3/uL 4.4-11.0 [facility] Cervical or vagninal specime n microscopic examination by cytology stain (reported asOrdered By: Esau Ordonez on 12-06-2023 Cytology report Cyto stain Doc (Cvx/Vag) Comment . [facility] Comment on above: The Pap smear is a s creening test designed to aid in thedetection of premalignant and malignant conditions of theuterine cervix. It is not a diagnostic procedure andshould not be used as the sole means of detecting cervicalcancer. Both false-positive and false-negative reports dooccur. Determination of erythrocyte mean corpuscular volume (MCV)Ordered By: Esau Ordonez on 12-06-2023 MCV (RBC) [Entitic vol] 85.7 fL 81-99 [facility] Erythrocyte distribution wid th ratioOrdered By: Esau Ordonez on 12-06-2023 Erythrocyte distribution width (RBC) [Ratio] 13.6 % 11.6-14.6 [facility] Erythrocyte distribution wid th standard deviationOrdered By: Esau Ordonez on 12-06-2023 Erythrocyte distribution width (RBC) [Entitic vol] 42.7 fL 35.1-43.9 [facility] Hematocrit Auto (Bld) [Volum e fraction]Ordered By: Esau Ordonez on 12-06-2023 Hematocrit (Bld) [Volume fraction] 40.3 % 37-47 [facility] Immature granulocytes/100 WB C Auto (Bld)Ordered By: Esau Ordonez on 12-06-2023 Immature granulocytes/100 WBC (Bld) 0.300 % 0.0-0.9 [facility] Comment on above: IG% - Immature Granu locytes (promyelocytes, myelocytes and metamyelocytes) > 1% indicates that a LEFT SHIFT is Present. Laboratory - Chemistry and C hemistry - challengeOrdered By: Esau Ordonez on 12-06-2023 CO2 [Moles/Vol] 24.0 mmol/L 21.0-32.0 [facility] Urea nitrogen/Creatinine [Mass ratio] 13.5 mg/mg 10-20 [facility] Laboratory - CytologyOrdered By: Esau Ordonez on 12-06-2023 Label Pinker Cyto stain Nom (Cvx/Vag) [ID] Comment . [facility] Comment on above: Paulette Ascencio pervisory Filler Sifter Machine (ASCP) Laboratory - Hematology and Cell countsOrdered By: Esau Ordonez on 12-06-2023 MCH (RBC) [Entitic mass] 28.7 pg 27.0-32.0 [facility] MCHC (RBC) [Mass/Vol] 33.5 g/dL 32-36 [facility] Nucleated RBC/100 WBC (Bld) [Ratio] 0 % 0-5 [facility] Platelet mean volume (Bld) [Entitic vol] 9.6 fL 6.2-12.0 [facility] Platelets (Bld) [#/Vol] 258 10*3/uL 150-450 [facility] Laboratory - Miscellaneous t estsOrdered By: Esau Ordonez on 12-06-2023 Service comment (Unsp spec) [Interp] . . [facility] No Panel InformationOrdered By: Esau Ordonez on 12-06-2023 Estimated GFR (MDRD) Amer 94 mL/min >60 [facility] Comment on above: GFR Calc Estimated GFR (MDRD) Non-Af Amer 78 mL/min >60 [facility] Comment on above: Non- GFR Calc RBC Auto (Bld) [#/Vol]Ordere d By: Esau Ordonez on 12-06-2023 RBC (Bld) [#/Vol] 4.70 10*6/uL 4.2-5.4 [facility] Serum or plasma calcium casey urement (mass/volume)Ordered By: Esau Ordonez on 12-06-2023 Calcium [Mass/Vol] 9.2 mg/dL 8.5-10.1 [facility] Serum or plasma creatinine m easurement (mass/volume)Ordered By: Esau Ordonez on 12-06-2023 Creatinine [Mass/Vol] 0.96 mg/dL 0.55-1.02 [facility] Comment on above: The validity of the calculated GFR & GFRAA in patients over 70 years has not been determined. Clinical correlation is essential. Serum or plasma urea nitroge n measurement (mass/volume)Ordered By: Esau Ordonez on 12-06-2023 Urea nitrogen [Mass/Vol] 13 mg/dL 7-18 [facility] Thin prep Papanicolaou smear with manual screeningOrdered By: Esau Ordonez on 12-06-2023 Thin prep Papanicolaou smear with manual screening 9 5-15 [facility] Thin prep Papanicolaou smear with manual screening Comment . [facility] Comment on above: NEGATIVE FOR INTRAEP ITHELIAL LESION OR MALIGNANCY. Vital Signs Date Time Vital Sign Value Performing Clinician Facility 04-14-2025 07:44-0400 Body height 165.[address] Esau Ordonez DO Work Phone: [facility] 04-14-2025 07:44-0400 Body mass index (BMI) [Ratio] 20.2 kg/m2 Dr. Esau Ordonez DO Work Phone: [facility] 04-14-2025 07:44-0400 Body temperature 97.2 [degF] Dr. Esau Ordonez DO Work Phone: [facility] 04-14-2025 07:44-0400 Body weight 55.[address] Esau Ordonez DO Work Phone: [facility] 04-14-2025 07:44-0400 Diastolic blood pressure 68 mm[Hg] Dr. Esau Ordonez DO Work Phone: [facility] 04-14-2025 07:44-0400 Heart rate 97 /min Dr. Esau Ordonez DO Work Phone: [facility] 04-14-2025 07:44-0400 Respiratory rate 16 /min Dr. Esau Ordonez DO Work Phone: [facility] 04-14-2025 07:44-0400 SaO2% (BldA) [Mass fraction] 99 % Dr. Esau Ordonez DO Work Phone: [facility] 04-14-2025 07:44-0400 Systolic blood pressure 118 mm[Hg] Dr. Esau Ordonez DO Work Phone: [facility] 12-10-2024 15:59-0400 Body height 165.[address] Esau Ordonez DO Work Phone: [facility] 12-10-2024 15:59-0400 Body mass index (BMI) [Ratio] 20.7 kg/m2 Dr. Esau Ordonez DO Work Phone: [facility] 12-10-2024 15:59-0400 Body temperature 98.6 [degF] Dr. Esau Ordonez DO Work Phone: [facility] 12-10-2024 15:59-0400 Body weight 56.[address] Esau Ordonez DO Work Phone: [facility] 12-10-2024 15:59-0400 Diastolic blood pressure 88 mm[Hg] Dr. Esau Ordonez DO Work Phone: [facility] 12-10-2024 15:59-0400 Heart rate 82 /min Dr. Esau Ordonez DO Work Phone: [facility] 12-10-2024 15:59-0400 Respiratory rate 18 /min Dr. Esau Ordonez DO Work Phone: [facility] 12-10-2024 15:59-0400 SaO2% (BldA) [Mass fraction] 99 % Dr. Esau Ordonez DO Work Phone: [facility] 12-10-2024 15:59-0400 Systolic blood pressure 122 mm[Hg] Dr. Esau Ordonez DO Work Phone: [facility] 02-16-2024 07:44-0400 Body temperature 98.01 [degF] Sidney Sanchez FINISHED CARPET INSPECTOR.AUTOMOTIVE PARTS MANAGER Work Phone: [facility] 02-16-2024 07:44-0400 Body weight 67.7 kg Sidney Sanchez APRN.AUTOMOTIVE PARTS MANAGER Work Phone: [facility] 02-16-2024 07:44-0400 Diastolic blood pressure 64 mm[Hg] Sidney Sanchez FINISHED CARPET INSPECTOR.AUTOMOTIVE PARTS MANAGER Work Phone: [facility] 02-16-2024 07:44-0400 Heart rate 87 /min Sidney Sanchez FINISHED CARPET INSPECTOR.AUTOMOTIVE PARTS MANAGER Work Phone: [facility] 02-16-2024 07:44-0400 Respiratory rate 16 /min Sidney Sanchez FINISHED CARPET INSPECTOR.AUTOMOTIVE PARTS MANAGER Work Phone: [facility] 02-16-2024 07:44-0400 SaO2% (BldA) [Mass fraction] 99 % Sidney Sanchez APRN.AUTOMOTIVE PARTS MANAGER Work Phone: [facility] 02-16-2024 07:44-0400 Systolic blood pressure 120 mm[Hg] Sidney Sanchez AUTOMOTIVE PARTS MANAGER Work Phone: [facility] 12-06-2023 15:06-0400 Body height 165.[address] Esau Ordonez Work Phone: [facility] 12-06-2023 15:06-0400 Body mass index (BMI) [Ratio] 26.2 kg/m2 Dr. Esau Ordonez Work Phone: [facility] 12-06-2023 15:06-0400 Body temperature 98.4 [degF] Dr. Esau Ordonez Work Phone: [facility] 12-06-2023 15:06-0400 Body weight 71.[address] Esau Ordonez Work Phone: [facility] 12-06-2023 15:06-0400 Diastolic blood pressure 64 mm[Hg] Dr. Esau Ordonez Work Phone: [facility] 12-06-2023 15:06-0400 Heart rate 96 /min Dr. Esau Ordonez Work Phone: [facility] 12-06-2023 15:06-0400 Respiratory rate 16 /min Dr. Esau Ordonez Work Phone: [facility] 12-06-2023 15:06-0400 SaO2% (BldA) [Mass fraction] 96 % Dr. Esau Ordonez Work Phone: [facility] 12-06-2023 15:06-0400 Systolic blood pressure 112 mm[Hg] Dr. Esau Ordonez Work Phone: [facility] Encounters Encounter Date Encounter Type Care Provider Facility Start: 04-14-2025 End: 04-14-[address] Esau Ordonez DO Work Phone: -[facility] Start: 04-14-2025 End: 04-14-2025 Patient encounter procedure Jody Ordonez PHARMACY CLINICAL SPECIALIST-C -[facility] Work Phone: Start: 12-19-2024 End: 12-19-[address] Esau Ordonez DO Work Phone: [facility] Work Phone: Start: 12-19-2024 End: 12-19-[address] Esau James DO -[facility] Start: 12-19-2024 End: 12-19-2024 ambulatory Esau Ordonez Facility:[facility] Start: 12-10-2024 End: 12-10-[address] Esau James DO -[facility] Work Phone: Start: 12-10-2024 End: 12-10-2024 ambulatory Esau Ordonez Facility:[facility] Start: 02-16-2024 End: 02-16-2024 ambulatory ESAU ORDONEZ Facility:[facility] Start: 02-16-2024 End: 02-16-2024 Patient encounter procedure Sidney Sanchez APRN.AUTOMOTIVE PARTS MANAGER Work Phone: [facility] Comment on above: URI, acute (Primary Dx); Sore throat Start: 12-06-2023 End: 12-06-[address] Esau Ordonez Work Phone: [facility] Work Phone: Start: 12-06-[address] Esau Ordonez Work Phone: [facility] Start: 12-06-[address] Debbie Ordonez Work Phone: [facility] Start: 12-06-2023 End: 12-06-[address] Esau Ordonez Work Phone: [facility] Work Phone: Procedures Date Procedure Procedure Detail Performing Clinician Start: 02-16-2024 STREP A MOLECULAR (POC) Amy Mckinley APRN.AUTOMOTIVE PARTS MANAGER Work Phone: Plan of Treatment Date Care Activity Detail Author Start: 05-26-2024 Influenza vaccination Influenza Vaccine (Season Ended) [facility] Start: 12-06-2023 Cytology report of Cervical or vaginal smear or scraping Cyto stain.thin prep [facility] Start: 09-25-2023 Behavioral Health Screening Behavioral Health Screening [facility] Start: 05-26-2023 Covid-19 Vaccine ( season) Covid-19 Vaccine ( season) [facility] Start: 2022 Hepatitis B Vaccine (1 of 3 - 19+ 3-dose series) Hepatitis B Vaccine (1 of 3 - 19+ 3-dose series) [facility] Start: 2022 Urine microalbumin profile DTaP,Tdap,Td Vaccine (1 - Tdap) [facility] Start: 2021 GC (Gonorrhea) Screening () GC (Gonorrhea) Screening () [facility] Start: 2021 Hepatitis C screening Hepatitis C Screening [facility] Start: 2021 HIV screening HIV Screening [facility] Start: 2021 Screening for Chlamydia trachomatis Chlamydia Screening () [facility] Start: 2019 Meningococcal B Vaccine: Consider Based On Risk (1 of 2 - Patient Seeks Protection) Meningococcal B Vaccine: Consider Based On Risk (1 of 2 - Patient Seeks Protection) [facility] Start: 2018 HPV Vaccine (1 - 3-dose series) HPV Vaccine (1 - 3-dose series) [facility] Start: 2017 Peds To Adult Transition Annual Assessment Peds To Adult Transition Annual Assessment [facility] Start: 2015 Peds To Adult Transition Initial Discussion Peds To Adult Transition Initial Discussion [facility] Neisseria gonorrhoea e nucleic acid detection [facility] PCR test for Chlamyd ia trachomatis [facility] Payers Date Payer Category Payer Self-pay [id number] 2023 Private Health Insurance [id number] 2023 Private Health Insurance [employer] C IGNA OAP [id number] 2023-Present [phone] [id number] [place] [id number] Open Access [id number] 2006 Unknown [id number] Unknown [id number] Unknown [id number] Social History Date Type Detail Facility [facility] Work Phone: Start: 2005 Sex Assigned At Female [facility] Start: 02-16-2024 [facility] tobacco [facility] History of tobacco use Passive smoker [facility] Start: 02-16-2024 Tobacco use and exposure Smokeless tobacco non-user [facility] Start: 02-16-2024 Alcohol intake Not Asked [facility] Start: 09-02-2020 End: 02-16-2024 History of Social function [facility] Start: 09-02-2020 End: 02-16-2024 Tobacco use panel [facility] National Score (1-100), lower number is lower risk Not on file [facility] Start: 2003 Sex Assigned At Not on file [facility] Work Phone: Start: 12-24-2024 Sex Female (finding) [facility] Evaluation note 12-10-2024 Note Date & Type Note Facility 12-10-2024 Evaluation note Diagnosis Onset Date Resolution Unexplained weight loss acute M arch 2024 3:53pm [facility] Work Phone: Progress note 02-16-2024 Note Date & Type Note Facility 02-16-2024 Note HNO ID: [id number] Author: SIDNEY SANCHEZ APRN.GIOVANNI Service: ? Author Type: Nurse Practitioner Type: Progress Notes Filed: 02/16/2024 08:07 Note Text: Subjective HPI HPI Fied Galarza is a 18 year old female who presents today for CC of cough, st. This started 5 days ago. Has tried otc medication for relief. Symptoms are worsened by nothing. Risk factors sick exposures at work. Denies possibility of being . nonsmoker. .Patient presents with: Sore Throat: X5 days No past medical history on file. No past surgical history on file. ALLERGIES Patient has no known allergies. MEDICATIONS MULTIVIT WITH CALCIUM,IRON,MIN (WOMEN'S MULTIPLE VITAMINS ORAL) Take 1 capsule by mouth once daily. COMPOUNDED PRESCRIPTION Take 1 tablet by mouth once daily. Biotin 500mg daily predniSONE (DELTASONE) 20 mg tablet Take 2 tablets by mouth once daily for 5 days. No family history on file. Social History Tobacco Use Smoking status: Never Passive exposure: Yes Smokeless tobacco: Never Review of Systems Constitutional: Negative for fever. HENT: Positive for congestion and sore throat. Negative for ear pain and nosebleeds. Respiratory: Positive for cough. Negative for shortness of breath and wheezing. Musculoskeletal: Negative for neck pain. Objective Blood pressure 120/64, pulse 87, temperature 36.7 ?C (98 ?F), resp. rate 16, weight 67.7 kg (149 lb 4 oz), SpO2 99%. Physical Exam Constitutional: General: She is not in acute distress. Appearance: She is not toxic-appearing or diaphoretic. HENT: Head: Normocephalic and atraumatic. Right Ear: Hearing, tympanic membrane, ear canal and external ear normal. Left Ear: Hearing, tympanic membrane, ear canal and external ear normal. Nose: Nose normal. Mouth/Throat: Lips: [place]. Mouth: Mucous membranes are moist. Pharynx: Uvula midline. Posterior oropharyngeal erythema present. No pharyngeal swelling, oropharyngeal exudate or uvula swelling. Eyes: General: Lids are normal. No scleral icterus. Right eye: No discharge. Left eye: No discharge. Conjunctiva/sclera: Conjunctivae normal. Pupils: Pupils are equal, round, and reactive to light. Neck: Trachea: Trachea normal. Cardiovascular: Rate and Rhythm: Normal rate and regular rhythm. Heart sounds: Normal heart sounds. Pulmonary: Effort: Pulmonary effort is normal. Breath sounds: Normal breath sounds. Musculoskeletal: Cervical back: Normal range of motion and neck supple. Lymphadenopathy: Cervical: No cervical adenopathy. Right cervical: No superficial cervical adenopathy. Left cervical: No superficial cervical adenopathy. Skin: Findings: No rash. Neurological: Mental Status: She is alert and oriented to person, place, and time. ASSESSMENT/PLAN: 1. URI, acute - ICD9: 465.9, ICD10: J06.9 (primary diagnosis) - Discussed viral etiology and rationale for treatment. - Symptomatic treatment with prn analgesia - Supportive care with fluids and rest - Follow up in 3-5 days if symptoms persist or sooner if worsening of symptoms - PREDNISONE 20 MG TABLET 2. Sore throat - ICD9: 462, ICD10: J02.9 Negative, viral - STREP A MOLECULAR (POC) - PREDNISONE 20 MG TABLET Sidney Sanchez APRN.CNP [facility] Clinical Note 02-16-2024 Addendum Note - Sidney Sanchez APRN.CNP - 02/16/2024 9:00 AM EDT Note Date & Type Note Facility 02-16-2024 Note Addended by: Liane SANCHEZ on: 02/16/2024 09:00 AM Modules accepted: Orders [facility] Note 02-16-2024 Addendum Note - Sidney Sanchez APRN.CNP - 02/16/2024 9:00 AM EDT Note Date & Type Note Facility 02-16-2024 Miscellaneous Notes Addended by: SIDNEY SANCHEZ on: 02/16/2024 09:00 AM Modules accepted: Orders documented in this encounter [facility] History of Present illness Narrative 02-16-2024 Sidney Sanchez APRN.CNP - 02/16/2024 8:05 AM EDT Note Date & Type Note Facility 02-16-2024 History of Presen t illness Narrative Subjective HPI HPI Fide Galarza is a 18 year old female who presents today for CC of cough, st. This started 5 days ago. Has tried otc medication for relief. Symptoms are worsened by nothing. Risk factors sick exposures at work. Denies possibility of being . nonsmoker. .Patient presents with: Sore Throat: X5 days No past medical history on file. No past surgical history on file. ALLERGIES Patient has no known allergies. MEDICATIONS MULTIVIT WITH CALCIUM,IRON,MIN (WOMEN'S MULTIPLE VITAMINS ORAL) Take 1 capsule by mouth once daily. COMPOUNDED PRESCRIPTION Take 1 tablet by mouth once daily. Biotin 500mg daily predniSONE (DELTASONE) 20 mg tablet Take 2 tablets by mouth once daily for 5 days. No family history on file. Social History Tobacco Use Smoking status: Never Passive exposure: Yes Smokeless tobacco: Never Review of Systems Constitutional: Negative for fever. HENT: Positive for congestion and sore throat. Negative for ear pain and nosebleeds. Respiratory: Positive for cough. Negative for shortness of breath and wheezing. Musculoskeletal: Negative for neck pain. Objective Blood pressure 120/64, pulse 87, temperature 36.7 C (98 F), resp. rate 16, weight 67.7 kg (149 lb 4 oz), SpO2 99%. Physical Exam Constitutional: General: She is not in acute distress. Appearance: She is not toxic-appearing or diaphoretic. HENT: Head: Normocephalic and atraumatic. Right Ear: Hearing, tympanic membrane, ear canal and external ear normal. Left Ear: Hearing, tympanic membrane, ear canal and external ear normal. Nose: Nose normal. Mouth/Throat: Lips: [place]. Mouth: Mucous membranes are moist. Pharynx: Uvula midline. Posterior oropharyngeal erythema present. No pharyngeal swelling, oropharyngeal exudate or uvula swelling. Eyes: General: Lids are normal. No scleral icterus. Right eye: No discharge. Left eye: No discharge. Conjunctiva/sclera: Conjunctivae normal. Pupils: Pupils are equal, round, and reactive to light. Neck: Trachea: Trachea normal. Cardiovascular: Rate and Rhythm: Normal rate and regular rhythm. Heart sounds: Normal heart sounds. Pulmonary: Effort: Pulmonary effort is normal. Breath sounds: Normal breath sounds. Musculoskeletal: Cervical back: Normal range of motion and neck supple. Lymphadenopathy: Cervical: No cervical adenopathy. Right cervical: No superficial cervical adenopathy. Left cervical: No superficial cervical adenopathy. Skin: Findings: No rash. Neurological: Mental Status: She is alert and oriented to person, place, and time. ASSESSMENT/PLAN: 1. URI, acute - ICD9: 465.9, ICD10: J06.9 (primary diagnosis) - Discussed viral etiology and rationale for treatment. - Symptomatic treatment with prn analgesia - Supportive care with fluids and rest - Follow up in 3-5 days if symptoms persist or sooner if worsening of symptoms - PREDNISONE 20 MG TABLET 2. Sore throat - ICD9: 462, ICD10: J02.9 Negative, viral - STREP A MOLECULAR (POC) - PREDNISONE 20 MG TABLET Sidney Sanchez APRN.[employer]IVE [employer]S MANAGER documented in this encounter [facility] Clinical Note 12-06-2023 Note Date & Type Note Facility 12-06-2023 Note [facility] Pap Smear Specimen Adequacy December 06, 2023 3:48pm Comment . Satisfactory for evaluation. No endocervical component is identified. Comment on above: Satisfactory for ramona luation. No endocervical component is identified. Evaluation note Note Date & Type Note Facility Evaluation note Diagnosis Onset Date Gynecologic exam normal acut e Syncope and collapse acute [facility] Work Phone: Evaluation note Note Date & Type Note Facility Evaluation note Diagnosis URI, acute- Primary Acute upper respiratory infections of unspecified site Sore throat Acute pharyngitis documented in this encounter [facility] Evaluation note Note Date & Type Note Facility Evaluation note Diagnosis Onset Date Resolution Back pain noneactive April 14 7:32am [facility] Work Phone: Reason for referral (narrative) Note Date & Type Note Facility Reason for referral (narrative) No reason for referral information available [facility] Work Phone: Chief Complaint and Reason for Visit Chief Complaint Re-Est/Pap Reason for Visit Gynecologic exam nor mal Syncope and collapse Chief Complaint Admit Date 1 Y FU December 10, 2024 3:5 3pm Reason for Visit Admit Date Unexplained weight loss December 10, 2024 3:53pm Chief Complaint Admit Date Back pain April 14, 2025 7:32 am Reason for Visit Admit Date Back pain April 14, 2025 7:32 am Summary Purpose Family History No Family History Records Found Advance Directives No Advanced Directives Records FoundNo Advanced Directives Records Found Additional Source Comments Care Teams (unrecognized sec tion and content) Team Status: Active Member Role Status Dates Dr. Esau Ordonez DO Family Provider Active Dr. Esau Ordonez DO Primary Care Provider Active Team Status: Inactive Member Role Status Dates Dr. Esau Ordonez DO Primary Care Pr ovider, Attending Provider, Referring Provider Active Team Status: Inactive Member Role Status Dates Dr. Esau Ordonez DO Primary Care Provider, Attend ing Provider Active Talent Consultant Relationship Specialty Start Date End Date Esau Ordonez DO PCP - General Family Medicine 10/30/15 Team Status: Inactive Member Role Status Dates Dr. Esau Ordonez DO Primary Care Provider Active Start: December 10, 2024 End: December 10, 2024 Dr. Esau Ordonez DO Attending Provider Active Start: December 10, 2024 End: December 10, 2024 Dr. Esau Ordonez DO Referring Provider Active Start: December 10, 2024 End: December 10, 2024 Team Status: Inactive Member Role Status Dates Dr. Esau Ordonez DO Primary Care Provider Active Start: December 19, 2024 End: December 19, 2024 Dr. Esau Ordonez DO Attending Provider Active Start: December 19, 2024 End: December 19, 2024 Dr. Esau Ordonez DO Referring Provider Active Start: December 19, 2024 End: December 19, 2024 Team Status: Active Member Role/Relationship Status Dates Dr. Esau Ordonez DO Family Provider Active Dr. Esau Ordonez DO Primary Care Provider Active Team Status: Inactive Member Role/Relationship Status Dates Dr. Esau Ordonez DO Primary Care Provider Active Start: December 19, 2024 End: December 19, 2024 Dr. Esau Ordonez DO Attending Provider Active Start: December 19, 2024 End: December 19, 2024 Dr. Esau Ordonez DO Referring Provider Active Start: December 19, 2024 End: December 19, 2024 Team Status: Inactive Member Role/Relationship Status Dates Dr. Esau Ordonez DO Primary Care Provider Active Start: April 14, 2025 End: April 14, 2025 Dr. Esau Ordonez DO Referring Provider Active Start: April 14, 2025 End: April 14, 2025 KAITLIN Dawn Attending Provider Active Start: April 14, 2025 End: April 14, 2025 Goals (unrecognized section and content) Goals may be documented in a n alternate sectionGoals may be documented in an alternate sectionGoals may be documented in an alternate section Source Comments (unrecognize d section and content) In the event this informatio n is protected by the Federal Confidentiality of Alcohol and Drug Abuse Patient Records regulations: The Federal rules restrict any use of the information to criminally investigate or prosecute any alcohol or drug abuse patient.[facility] Reason for Visit (unrecogniz ed section and content) Reason Comments Sore Throat X5 days INFORMATION SOURCE (unrecogn ized section and content) DATE CREATED AUTHOR 02/18/2024 [facility] DATE CREATED AUTHOR AUTHOR'S ORGANIZ ATION 12/25/2024 [facility] FOR RECORDS PERTAINING TO PATIENTS WHO ARE [...] BE BASED ON THE PRIMARY CLINICAL RECORDS. [employer] [facility]. provides no warranty or guarantee of the accuracy or completeness of information in this document.
== END | disposition home or self-care (01) ==
LOC: RAD 09:19
PROVIDERS: PCP Family Medicine; Referring Provider Nurse Practitioner Family; Visit Provider Nurse Practitioner Family
DX: M54.50 Low back pain, unspecified (principal); M54.2 Cervicalgia; M54.6 Pain in thoracic spine
CPT/HCPCS: 72050; 72072; 72114